=== PATIENT | male | born 1965 | race Caucasian/White ===

== ENCOUNTER → 2018-08-02 08:20 | Outpatient (CLI) | payer OTHER, SELFPAY ==
[2018-08-02 09:23] LABS: Alanine Aminotransferase 36 IU/L (21-72); Albumin 4.4 g/dL (3.5-5.0); Albumin Globulin Ratio 1.4 (1.0-2.8); Alkaline Phosphatase 53 U/L (38-126); Aspartate Aminotransferase 31 IU/L (17-59); BUN Creatinine Ratio 13.1 (6-22); Bilirubin Total 0.8 mg/dL (0.2-1.3); Blood Urea Nitrogen 17 mg/dL (9-20); Calcium 9.5 mg/dL (8.4-10.2); Carbon Dioxide 29 mmol/L (22-32); Chloride 102 mmol/L (98-107); Cholesterol 214 mg/dL (140-199); Estimated Glomerular Filt Rate 58.2 mL/min (>60); Globulin 3.1 g/dL (1.7-4.1); Glucose 93 mg/dL (70-100); HDL Cholesterol 44 mg/dL (40-60); HEMOLYSIS < 15 (0-50); LDL Cholesterol Calculated 148 mg/dL (<100); Potassium 4.8 mmol/L (3.4-5.1); Sodium 140 mmol/L (137-145); Total Protein 7.5 g/dL (6.3-8.2); Triglycerides 111 mg/dL (35-150)
== END ==
PROVIDERS: PCP Internal Medicine; Visit Provider Internal Medicine
DX: Z00.00 Encounter for general adult medical examination without abnormal findings (principal); Z13.1 Encounter for screening for diabetes mellitus; Z13.6 Encounter for screening for cardiovascular disorders
CPT/HCPCS: 36415; 80053; 80061

== ENCOUNTER → 2020-07-09 15:10 | Outpatient (CLI) | payer OTHER, SELFPAY ==
[2020-07-09 22:03] LABS: COVID19 -Nasal RAPID Negative (Negative)
== END ==
PROVIDERS: PCP Internal Medicine; Visit Provider Surgery
DX: Z01.812 Encounter for preprocedural laboratory examination (principal); Z20.822 Contact with and (suspected) exposure to COVID-19
CPT/HCPCS: 87635; C9803

== ENCOUNTER 2020-07-10 08:09 | Day surgery (SDC) | payer OTHER, SELFPAY ==
[2020-07-10] VITALS (10 sets, daily range): BP systolic 86–117; BP diastolic 60–76; PULSE 59–71; RESP 12–16; TEMP 36.1–37; O2SAT 95–100; BMI 31.5
--- NOTE | 2020-07-10 | PATH_ITS ---
[facility] Accession Number: [id number] . 01 Material submitted: . body - POLYP AT 45CM . 02 Diagnosis: Colon Polyp at 45 cm, Biopsy: Tubular adenoma. MRV 07/14/2020 1247 Local . 02 Electronically signed: . Chong Melara MD, PhD, Pathologist NPI- [id number] . 01 Gross description: . POLYP AT 45CM: Received in formalin is 1 fragment(s) of hopkins, soft tissue measuring 0.3 x 0.3 x 0.3 cm submitted entirely in 1 cassette(s) /QBJ 07/11/2020 0740 Local . 02 Pathologist provided ICD-10: D12.6 . 02 CPT . 097321 Performed at: [address] [facility] [address] [facility], [place], [place] [id number] MD Malachi Avery MD Phone: [phone] Performed at: 02 [facility] [address] [place], [place] [id number] MD Annie Madden MD Phone: [phone]
[2020-07-10] MEDS: SODIUM CHLORIDE 0.9% 1,000 ML 200 ML IV (08:41)
--- NOTE | 2020-07-10 08:43 | PM.HP.1 ---
History of Present Illness History of Present Illness Date Patient Seen: 07/10/20 Time Patient Seen: 08:43 Chief complaint: SD Narrative: This is a 54-year-old man here for his 1st screening colonoscopy. He denies any history of melena, hematochezia, unexplained abdominal pain, unexplained weight loss, or any family history of advanced polyps or colon cancers. He says he is otherwise healthy, and has no active medical problems. ROS Thirteen system review is otherwise negative other than as mentioned below and in HPI. PE: GENERAL: Well groomed and cooperative. Appears stated age. Answers questions promptly and appropriately. Vital signs noted. HENT: Normocephalic, atraumatic. Hearing intact. EYES: Conjunctiva pink, sclera white, no periorbital swelling. CARDIOVASCULAR: Regular rate. No pedal edema. RESPIRATORY: Non-tachypneic, breathing comfortably on room air. GASTROINTESTINAL: Abdomen soft and non-distended GENITALURINARY: No flank tenderness. MUSCULOSKELETAL: Equal tone and mass bilaterally. SKIN: Warm, dry, soft, appropriate color for ethnicity. No other lesions, rashes, or wounds. NEURO: Alert and Oriented X 3. No gross sensory deficits, or cognitive issues. PSYCH: Appropriate affect and mood. Patient History Family & Social History Family History Father Family history of multiple myeloma Social History: household members children Tobacco & Substance use: Smoking Status Former smoker alcohol intake current alcohol intake frequency a few times a week Substance Use Type marijuana Meds Home Medications and Allergies Home Medications Medication Instructions Recorded Confirmed Type meclizine 25 mg tablet 25 mg PO BID PRN 180 Days #30 tab 01/09/20 07/10/20 Rx Allergies Allergy/AdvReac Type Severity Reaction Status Date / Time hydromorphone [From DILAUDID] Allergy Unknown Very Verified 04/09/20 16:08 Nauseated Exam Vital Signs (past 8 hours): - 07/10/20 08:29 Temperature 97 F L Pulse Rate 69 Respiratory Rate 16 Blood Pressure 117/64 Pulse Oximetry 95 Oxygen Delivery Method Room Air Oxygen Flow Rate 0 Assessment & Plan Assessment and plan (1) At average risk for colon cancer: Status: Acute Assessment & Plan narrative: Risks and benefits of screening colonoscopy and possible polypectomy were discussed with the patient including risk of bleeding, perforation, need for additional procedures, risks of anesthesia. The patient desires to proceed with the colonoscopy procedure. COVID-19 COVID-19 status: Negative Result date/Date tested (Pos, Neg/Pending): 07/09/20 Time Spent With Patient Time with patient: 15-24 minutes Quality VTE Deep Vein Thrombosis/Pulmonary Embolism Present on Admission: No
--- NOTE | 2020-07-10 08:45 | PM.OP.ENDO ---
Operative Date/Time/Diagnoses Date of procedure: 07/10/20 Time of procedure: 08:46 Pre-op diagnosis: Average risk for colon cancer, due for screening colonoscopy Post-op diagnosis: other (Single adenomatous appearing polyp removed at 45 cm, otherwise normal colon) Procedure & Clinicians Study performed: Colonoscopy Procedural sedation performed by the endoscopist Polypectomy with Jumbo forceps Same procedure as scheduled: Yes Indications: At average risk for colon cancer, due for screening colonoscopy Surgeon: Kenisha Coronado Procedure Notes SCOAP/Timeout: Performed Procedure in detail: The patient was brought to the room and placed in left lateral decubitus position with all bony prominences padded. A time-out was performed and then the patient was given procedural sedation starting with 4 mg of Versed an100] mcg of fentanyl. A total of 6 mg of Versed and 100 micro g of fentanyl were given for the entire procedure. Vitals were monitored throughout the procedure and remained stable. Once adequately sedated, the procedure was begun. A rectal exam was performed revealing [no abnormalities. The colonoscope was then introduced to the rectum and advanced to the cecum in the usual fashion.]The cecum was identified by the appendiceal orifice, the mucosal tri-fold, and the ileocecal valve. A 5 mm adenomatous polyp was seen at 45 cm, and was removed with Jumbo forceps. The scope was then retracted while rotating side to side and examining each mucosal fold. [ At the conclusion of the procedure retroflexion was performed andsmall grade 1-2 internal hemorrhoids without stigmata of bleeding were seen]. The scope was then withdrawn from the rectum the procedure was concluded. The patient tolerated the procedure well and was transferred to the PACU in stable condition. Scope withdrawal time: 10 Sedation minutes: 21 Findings: polyp Specimen(s): other (Single adenomatous appearing polyp from 45 cm) Complications: none Impression: One polyp, otherwise normal colon Post-procedure Recommendations: Colonscopy in 10 years (Depending on pathology results) Follow up: as needed Disposition: PACU
[2020-07-10] MEDS: fentaNYL 250 MCG/5 ML INJ IV (08:49)
[2020-07-10] MEDS: MIDAZOLAM 5 MG/5 ML VIAL IV (08:53)
== END 2020-07-10 10:13 | disposition home or self-care (01) ==
PROVIDERS: PCP Internal Medicine; Referring Provider Internal Medicine; Visit Provider Surgery
PROC: 0DJD8ZZ Inspection of Lower Intestinal Tract, Via Natural or Artificial Opening Endoscopic (ICD-10-PCS; CPT 45378; principal; 2020-07-10 09:15)
DX: Z12.11 Encounter for screening for malignant neoplasm of colon (principal); K64.0 First degree hemorrhoids; D12.6 Benign neoplasm of colon, unspecified
CPT/HCPCS: 45380; 99152; J2250; J3010

== ENCOUNTER → 2021-04-28 09:01 | Outpatient (CLI) | payer OTHER, SELFPAY ==
[2021-04-28 11:39] LABS: COVID19 -Nasal RAPID POSITIVE (Negative)
== END ==
PROVIDERS: PCP Internal Medicine; Referring Provider Nurse Practitioner Family; Visit Provider Nurse Practitioner Family
DX: Z20.822 Contact with and (suspected) exposure to COVID-19 (principal); R50.9 Fever, unspecified; R19.7 Diarrhea, unspecified; R42 Dizziness and giddiness
CPT/HCPCS: 87635

== ENCOUNTER 2022-07-23 10:03 | Emergency (ER) | payer OTHER, SELFPAY ==
[2022-07-23 10:17] VITALS: BP 135/80; PULSE 87; RESP 20; TEMP 37.1; O2SAT 98; BMI 33.0
--- NOTE | 2022-07-23 10:24 | PC.NURSE ---
Has swelling to left low back.
[2022-07-23 11:39] VITALS: BP 143/65; PULSE 74; RESP 16; O2SAT 98
[2022-07-23 12:33] VITALS: BP 112/57; BP 114/56; BP 121/56; PULSE 71; PULSE 84; PULSE 86
[2022-07-23] MEDS: KETOROLAC 30 MG/ML VIAL IM (13:00)
[2022-07-23] MEDS: methocarbamoL 500 MG TABLET PO (13:01)
--- NOTE | 2022-07-23 13:22 | ED.BACK ---
HPI - Back Pain/Injury <PARISH Ward - Last Filed: 07/23/22 14:49> General Chief Complaint: Back Pain/Injury Stated Complaint: slipped on ice; back pain Time Seen by Provider: 07/23/22 11:59 Source: patient History of Present Illness HPI Narrative: 56-year-old male, former smoker, presents to the emergency department with lower back pain after slipping on ice outside his home deck, landing on his coccyx and down 4 steps. Patient denies hitting his head or any loss of consciousness. After completing a self assessment, patient did go to the gym where he did leg exercises that included squats. When stretching out afterwards, he felt a sharp pain in his left lower back, but decided to finish up his dumbbell work out. After getting home, resting and applying ice, noticed that the pain was getting any better and decided to come to the emergency department. Patient denies any loss of control of bowel or bladder or numbness and tingling of his lower extremities. Patient is concerned because a family relative had a similar injury that the ended up rupturing a disc in the back. Related Data Previous Rx's Medication Instructions Recorded meclizine 25 mg tablet 25 mg PO BID PRN dizziness 6 01/09/20 months #30 tabs methocarbamol 750 mg tablet 750 mg PO TID PRN muscle pain #20 07/23/22 tabs oxycodone-acetaminophen 5 mg-325 1 tab PO Q6H PRN pain #10 tabs 07/23/22 mg tablet (Percocet) Allergies Allergy/AdvReac Type Severity Reaction Status Date / Time hydromorphone [From DILAUDID] Allergy Unknown Very Verified 07/23/22 10:17 Nauseated Review of Systems <PARISH Ward - Last Filed: 07/23/22 14:49> Review of Systems Narrative: Narrative: See HPI. GENERAL: Denies chills, fatigue, fever, sweats. HEENT: Denies sinus pain, ear pain, sore throat, difficulty swallowing, dizziness. RESPIRATORY: Denies dyspnea, cough, wheezing, sputum. CARDIOVASCULAR: Denies chest pain, palpitations, edema. GASTROINTESTINAL: Denies nausea, vomiting, abdominal pain, diarrhea, constipation. : Denies dysuria, frequency, incontinence, hematuria, urinary retention, flank pain, loss of control of bowel or bladder. MSK: Denies weakness. Endorses left lower back pain. SKIN: Denies rash, skin lesions, or pruritis. NEUROLOGIC: Denies weakness, dizziness, headache, numbness or tingling, confusion. PSYCHIATRIC: No concerning psychosocial issues. Patient History <PARISH Ward - Last Filed: 07/23/22 14:49> Family History Father Family history of multiple myeloma Social History household members: children Smoking Status: Former smoker alcohol intake: current substance use type: does not use Smoking Status: Former smoker alcohol intake frequency: a few times a week Substance Use Type: marijuana Exam <PARISH Ward - Last Filed: 07/23/22 14:49> Narrative Exam Narrative: Exam Narrative: GENERAL: This is a well-nourished, well-developed patient, in no acute distress. HEAD: Atraumatic. Normocephalic. NECK: Trachea midline. No JVD or lymphadenopathy. Nontender. CARDIOVASCULAR: Regular rate and rhythm without murmurs, peripheral pulses intact, cap refill <2 sec. RESPIRATORY: Breath sounds equal and clear bilaterally. No wheezes, rales, or rhonchi. No cough. No increased respiratory effort. No accessory muscle use. GASTROINTESTINAL: Abdomen soft, non-tender, nondistended without guarding or rebound. No suprapubic pain. MSK: Moves all extremities. Normal range of motion, no clubbing or edema. Neurovascularly intact. NEURO: A&O x 3. SKIN: Warm, dry, no rashes or lesions noted. BACK tobacco wrapping machine tender but free of any obvious external abnormalities. There is mild swelling of left lower back, but no asymmetry, bruising or wound. There is no paraspinal tenderness or CVA tenderness. SI joints nontender. Mild pain over spinous processes along L4-5. No symptoms of cauda equina such as saddle anesthesia. Sensation is grossly intact. ROM is limited due to pain. SLE is negative bilaterally. Resistive strengths are within normal limits Gait is normal. Heel toe balance is intact. Initial Vital Signs Initial Vital Signs: Vital Signs Temperature 98.7 F 07/23/22 10:17 Pulse Rate 87 07/23/22 10:17 Respiratory Rate 20 07/23/22 10:17 Blood Pressure 135/80 07/23/22 10:17 Pulse Oximetry 98 07/23/22 10:17 Oxygen Delivery Method 07/23/22 10:17 Reviewed <Jeniffer Rodriguez DO - Last Filed: 07/23/22 18:49> Initial Vital Signs Initial Vital Signs: Vital Signs Temperature 98.7 F 07/23/22 10:17 Pulse Rate 87 07/23/22 10:17 Respiratory Rate 20 07/23/22 10:17 Blood Pressure 135/80 07/23/22 10:17 Pulse Oximetry 98 07/23/22 10:17 Oxygen Delivery Method 07/23/22 10:17 Course <PARISH Ward - Last Filed: 07/23/22 14:49> Orders Ordered: ED Orders 07/23/22 13:32 XR lumbar spine 2-3V Stat Discontinued Medications Ketorolac Tromethamine (Ketorolac 30 Mg/Ml Vial) 30 mg IM NOW ONE Stop: 07/23/22 12:37 Last Admin: 07/23/22 13:00 Dose: 30 mg Documented By: AT Methocarbamol (Methocarbamol 500 Mg Tablet) 500 mg PO NOW ONE Stop: 07/23/22 12:37 Last Admin: 07/23/22 13:01 Dose: 500 mg Documented By: AT Vital Signs Vital signs: Vital Signs - 8 hr 07/23/22 11:39 07/23/22 12:33 07/23/22 15:19 Pulse Rate 74 Pulse Rate [Orthostatic Lying] 71 Pulse Rate [Orthostatic Sitting] 84 Pulse Rate [Orthostatic Standing] 86 Respiratory Rate 16 Blood Pressure 143/65 H Blood Pressure [Orthostatic Lying] 114/56 L Blood Pressure [Orthostatic Sitting] 112/57 L Blood Pressure [Orthostatic Standing] 121/56 L Pulse Oximetry 98 Oxygen Delivery Method Room Air Room Air <Jeniffer Rodriguez DO - Last Filed: 07/23/22 18:49> Orders Ordered: ED Orders 07/23/22 13:32 XR lumbar spine 2-3V Stat Discontinued Medications Ketorolac Tromethamine (Ketorolac 30 Mg/Ml Vial) 30 mg IM NOW ONE Stop: 07/23/22 12:37 Last Admin: 07/23/22 13:00 Dose: 30 mg Documented By: AT Methocarbamol (Methocarbamol 500 Mg Tablet) 500 mg PO NOW ONE Stop: 07/23/22 12:37 Last Admin: 07/23/22 13:01 Dose: 500 mg Documented By: AT Vital Signs Vital signs: Vital Signs - 8 hr 07/23/22 11:39 07/23/22 12:33 07/23/22 15:19 Pulse Rate 74 Pulse Rate [Orthostatic Lying] 71 Pulse Rate [Orthostatic Sitting] 84 Pulse Rate [Orthostatic Standing] 86 Respiratory Rate 16 Blood Pressure 143/65 H Blood Pressure [Orthostatic Lying] 114/56 L Blood Pressure [Orthostatic Sitting] 112/57 L Blood Pressure [Orthostatic Standing] 121/56 L Pulse Oximetry 98 Oxygen Delivery Method Room Air Room Air MDM - Back Pain/Injury <PARISH Ward - Last Filed: 07/23/22 14:49> Differential Diagnosis Differential diagnosis: Likely lumbar radiculopathy and strain of lumbar region Lab Data Labs: Urine Dip Bedside Urine Glucose Negative Bedside Urine Bilirubin - Negative Bedside Urine Ketone +/- 5 Urine Specific Pana 1.025 Bedside Urine Occult Blood - Negative Bedside Urine pH 6.0 Bedside Urine Protein - Negative Bedside Urine Urobilinogen - Negative Bedside Urine Nitrite - Negative Imaging Data Extremity x-ray #1: Radiologist's Impression: [place] [address] XRay Report Signed Patient: Justin Gaytan MR#: [id number] : 1965 Acct:[id number] Age/Sex: 56 / M Date of Service: 07/23/22 Loc: ED Accession Number: [id number] ?? Procedure: XR lumbar spine 2-3V Ordering Provider: Justin Krishnan PROCEDURE:? XR LUMBAR SPINE 2-3V ? INDICATIONS:? Low back injury ? TECHNIQUE:? 3 views of the lumbar spine were acquired.? ? COMPARISON:? None. ? FINDINGS:? ? Bones:? 5 [id number] vertebrae are present.? There is normal bony alignment.? No vertebral body compression fractures.? No suspicious bony lesions.? ? Moderate disc space narrowing is seen at L5-S1, with associated endplate irregularity and sclerosis. The disc heights otherwise appear well-preserved.? Lower lumbar spine facet arthropathy is seen.? ? Soft tissues:? Overlying bowel gas pattern is normal.? No suspicious soft tissue calcifications.? ? ? IMPRESSION:? Focal L5-S1 degenerative change. ? If it would be helpful for clinical management decision making, please consider a dedicated, scheduled lumbar spine MRI for further evaluation (assuming that there is no contraindication).? ? ? Dictated by: Panfilo Nevarez M.D. on 07/23/2022 at 13:31 ? ? Approved by: Panfilo Nevarez M.D. on 07/23/2022 at 13:32 ? MDM Narrative Medical decision making narrative: 56-year-old male presents to the emergency department with a low back pain after falling on ice earlier today. Assessment was encouraging and no red flag symptoms noted. Initial dizziness with standing, but with normal orthostatic vital signs. Point of care urine dip was normal. Patient given a single dose of Robaxin and Toradol, for his discomfort, with good pain relief. Lumbar series x-ray revealed focal L5-S1 degenerative changes. Will discharge patient home with recommendations of hot and cold compresses to the affected site, gentle range of motion stretching exercises, NSAIDs, muscle relaxers and pain medication. Discussed plan of care and return precautions with patient, who verbalized understanding and was agreeable to course of action. Consideration included that injury was traumatic, patient is not a IV drug user, no fever, neurovascular intact, no weakness, no signs of epidural abscess or saddle anesthesia. <Jeniffer Rodriguez, DO - Last Filed: 07/23/22 18:49> Lab Data Labs: Urine Dip Bedside Urine Glucose Negative Bedside Urine Bilirubin - Negative Bedside Urine Ketone +/- 5 Urine Specific Pana 1.025 Bedside Urine Occult Blood - Negative Bedside Urine pH 6.0 Bedside Urine Protein - Negative Bedside Urine Urobilinogen - Negative Bedside Urine Nitrite - Negative Discharge Plan Departure Patient Disposition: Home Clinical Impression: Strain of lumbar region Instructions: DI for Low Back Pain, DI for Back Strain or Sprain Activity Restrictions/Additional Instructions: *You have been diagnosed with low back strain. My assessment was encouraging and your x-ray was normal with the exception of some degenerative changes along L5-S1. We have given you a injection of Toradol, so please begin ibuprofen 800 mg 3 times a day with food for the next 3-5 days starting tomorrow morning. We have given you 1 muscle relaxer, Robaxin, and you may take another pill in 4 hours. For breakthrough pain, we have given you a short course of pain medication. As we discussed, for any worsening symptoms that include numbness and tingling of your legs, or loss of control of bowel or bladder, please return to the emergency department immediately. *What to do: *Please continue to take your regular medications as directed. [x ] New medication prescriptions sent to your pharmacy: [[facility]] [ ] New medication written as a paper prescription [ ] No new medications given *Please follow up with your primary care provider in 2-3 days, call for an appointment. Let them know you were seen in the Emergency Department and that we ask that you be seen in follow up. We will electronically transmit a record of today's note if your PCP is in our system *If you do not have a primary care provider please contact the [facility] Resource line at [phone]. They will ask some questions about your medical history and help get you set up with a doctor in the community. ? Return to ER if you should have any new, worsening or concerning symptoms, such as worsening pain, severe headache, confusion, chest pain, difficulty breathing, fever greater than 101 F, shaking chills, persistent vomiting to the point that you cannot drink fluids, or other new or worsening symptoms. Prescriptions: New oxycodone-acetaminophen [Percocet] 5-325 mg tablet 1 tab PO Q6H PRN (Reason: pain) Qty: 10 0RF methocarbamol 750 mg tablet 750 mg PO TID PRN (Reason: muscle pain) Qty: 20 0RF No Action meclizine 25 mg tablet 25 mg PO BID PRN (Reason: dizziness) 180 Days Qty: 30 5RF Referrals: Markus Bernal MD [Primary Care Provider] - Stand Alone Forms: Patient Portal/API <Jeniffer Rodriguez DO - Last Filed: 07/23/22 18:49> Cosign ED Attending Satnamature Attestation: I was immediately available in the department for consultation. Documentation has been reviewed.
--- NOTE | 2022-07-23 13:29 | PC.NURSE ---
Pt ambulatory to bathroom with steady gait.
--- NOTE | 2022-07-23 13:32 | DI.RAD.S_ITS ---
PROCEDURE: XR LUMBAR SPINE 2-3V INDICATIONS: Low back injury TECHNIQUE: 3 views of the lumbar spine were acquired. COMPARISON: None. FINDINGS: Bones: 5 [id number] vertebrae are present. There is normal bony alignment. No vertebral body compression fractures. No suspicious bony lesions. Moderate disc space narrowing is seen at L5-S1, with associated endplate irregularity and sclerosis. The disc heights otherwise appear well-preserved. Lower lumbar spine facet arthropathy is seen. Soft tissues: Overlying bowel gas pattern is normal. No suspicious soft tissue calcifications. IMPRESSION: Focal L5-S1 degenerative change. If it would be helpful for clinical management decision making, please consider a dedicated, scheduled lumbar spine MRI for further evaluation (assuming that there is no contraindication). Dictated by: Panfilo Nevarez M.D. on 07/23/2022 at 13:31 Approved by: Panfilo Nevarez M.D. on 07/23/2022 at 13:32
== END 2022-07-23 14:50 | disposition home or self-care (01) ==
PROVIDERS: Emergency Provider Registered Nurse; PCP Internal Medicine
DX: S39.012A Strain of muscle, fascia and tendon of lower back, initial encounter (principal); W00.0XXA Fall on same level due to ice and snow, initial encounter
CPT/HCPCS: 72100; 81003; 96372; 99283; 99284; J1885

== ENCOUNTER → 2023-10-28 07:45 | Outpatient (CLI) | payer OTHER, SELFPAY ==
[2023-10-28 09:08] LABS: Add Manual Diff / Slide Review NO; Basophils Absolute Auto 0 /uL (0-100); Basophils Percent Auto 0.6 % (0-2); Eosinophils Absolute Auto 100 /uL (0-450); Eosinophils Percent Auto 2.3 % (2-4); Hematocrit 44.8 % (41-53); Hemoglobin 15.6 g/dL (13.5-17.5); Lymphocytes Absolute Auto 1000 /uL (1100-4500); Lymphocytes Percent Auto 17.8 % (25-40); Mean Corpuscular HGB Conc 34.8 % (30-36); Mean Corpuscular Hemoglobin 32.2 PG (26-34); Mean Corpuscular Volume 92.4 fL (80-100); Monocytes Absolute Auto 500 /uL (0-900); Monocytes Percent Auto 9.3 % (3-14); Neutrophils Absolute Auto 4100 /uL (1500-7000); Platelet Count 284 X10^3/uL (150-400); Red Blood Cell Count 4.85 X10^6/uL (4.5-5.9); Red Cell Distribution Width 12.7 % (11.6-14.8); White Blood Cell Count 5.8 X10^3/uL (4.5-11.0)
[2023-10-28 09:35] LABS: Albumin 4.4 g/dL (3.5-5.0); Albumin Globulin Ratio 1.7 (1.0-2.8); Aspartate Aminotransferase 42 IU/L (17-59); BUN Creatinine Ratio 13.3 (6-22); Bilirubin Total 1.2 mg/dL (0.2-1.3); Blood Urea Nitrogen 18 mg/dL (9-20); Calcium 8.8 mg/dL (8.4-10.2); Carbon Dioxide 28 mmol/L (22-32); Chloride 105 mmol/L (98-107); Cholesterol 195 mg/dL (140-199); Estimated Glomerular Filt Rate > 60 mL/min (>60); Globulin 2.6 g/dL (1.7-4.1); Glucose 93 mg/dL (70-100); HEMOLYSIS < 15 (0-50); Triglycerides 58 mg/dL (35-150)
[2023-10-28 09:54] LABS: Alanine Aminotransferase 50 IU/L (<50); Alkaline Phosphatase 51 U/L (38-126); HDL Cholesterol 79 mg/dL (40-60); LDL Cholesterol Calculated 104 mg/dL (<100); Potassium 4.7 mmol/L (3.4-5.1); Sodium 138 mmol/L (137-145)
[2023-10-28 10:05] LABS: Prostate Specific Antigen Scrn 2.56 ng/mL (0.1-4.0)
== END ==
PROVIDERS: PCP Internal Medicine; Referring Provider Internal Medicine; Visit Provider Internal Medicine
DX: F07.81 Postconcussional syndrome (principal); Z13.6 Encounter for screening for cardiovascular disorders; Z13.1 Encounter for screening for diabetes mellitus; Z13.220 Encounter for screening for lipoid disorders; R55 Syncope and collapse; D64.9 Anemia, unspecified; Z12.5 Encounter for screening for malignant neoplasm of prostate
CPT/HCPCS: 36415; 80053; 80061; 85025; G0103